=== PATIENT | female | born 1955 | race Caucasian/White ===

== ENCOUNTER → 2017-02-16 | Outpatient (CLI) | payer OTHER ==
[~2017-02-16] MED LIST: CALCTAB5 PO; CRD4 PO; CRG25 PO; DYZ PO; IBUP600T44 PO; LEVO100T84 PO; OMEG10007 PO; OXYC-57 PO; PRAV20TA PO; PRLSR20 PO
[2017-02-16 12:38] LABS: ALT/SGPT 31 U/L (12-78); BLOOD UREA NITROGEN 20 mg/dl (7-18); CALCIUM 9.2 mg/dl (8.5-10.1); CARBON DIOXIDE 26 mmol/L (21-32); CHLORIDE 111 mmol/L (98-107); CHOLESTEROL 147 mg/dl (0-200); CREATININE 0.86 mg/dl (0.60-1.20); GLUCOSE 89 mg/dl (70-99); POTASSIUM 4.1 mmol/L (3.5-5.1); SODIUM 144 mmol/L (136-145); TRIGLYCERIDES 84 mg/dl (0-150); VERY LOW DENSITY LIPOPROT CALC 17 mg/dl
[2017-02-16 12:49] LABS: ALKALINE PHOSPHATASE 125 U/L (45-117); AST/SGOT 22 U/L (15-37); CHOLESTEROL/HDL RATIO 2.4; HDL CHOLESTEROL 61 mg/dl; LDL CHOLESTEROL CALCULATED 69 mg/dl
== END | disposition home or self-care (01) ==
LOC: C.LABPBG 08:45
PROVIDERS: ATTEND Internal Medicine
DX: E03.9 Hypothyroidism, unspecified (principal); E78.5 Hyperlipidemia, unspecified; R42 Dizziness and giddiness

== ENCOUNTER → 2017-06-15 | Outpatient (CLI) | payer OTHER ==
[2017-06-15 17:57] LABS: BASO % 1.1 %; COMPLETE YES; EOS % 2.9 %; IG% 0.5 %; LYMPH % 25.6 %; LYMPH ABS # 2.42 K/uL (1.2-3.4); MEAN CELL VOLUME 93.1 fL (80-100); MEAN CORPUSCULAR HEMOGLOBIN 30.6 pg (25-34); MEAN CORPUSCULAR HGB CONC 32.9 g/dl (32-36); MEAN PLATELET VOLUME 10.8 fL (7.4-10.4); MONO % 7.9 %; PLATELET COUNT 271 K/uL (130-400); RED BLOOD COUNT 4.51 M/uL (4.2-5.4); WHITE BLOOD COUNT 9.46 K/uL (4.8-10.8)
[2017-06-15 18:25] LABS: ALT/SGPT 32 U/L (12-78); AST/SGOT 23 U/L (15-37); BLOOD UREA NITROGEN 16 mg/dl (7-18); BUN/CREATININE RATIO 17.6 (10-20); CALCIUM 9.2 mg/dl (8.5-10.1); CARBON DIOXIDE 28 mmol/L (21-32); CHLORIDE 109 mmol/L (98-107); GLUCOSE 80 mg/dl (70-99); POTASSIUM 3.9 mmol/L (3.5-5.1); SODIUM 143 mmol/L (136-145)
[2017-06-15 18:28] LABS: ALB/GLOB RATIO 1.1 (0.9-2); ALKALINE PHOSPHATASE 132 U/L (45-117)
[2017-06-15 18:46] LABS: LYME DISEASE AB IGM NEG (NEG)
[2017-06-15 18:49] LABS: LYME DISEASE AB IGG NEG (NEG)
== END | disposition home or self-care (01) ==
LOC: C.LAB 17:11
PROVIDERS: ATTEND Physician Assistant
DX: H53.8 Other visual disturbances (principal); R42 Dizziness and giddiness

== ENCOUNTER → 2017-06-17 | Outpatient (CLI) | payer OTHER ==
--- NOTE | 2017-06-17 09:56 | DIAGNOSTIC IMAGING REPORT ---
HEAD WITHOUT CONTRAST (CT) CLINICAL HISTORY: 61 years-old Female with R42 Severe [id number] Blurred vision TECHNIQUE: Multiple axial CT images of the head were obtained without contrast. A dose lowering technique was utilized adhering to the principles of ALARA. CT DOSE: 537.48 mGy.cm COMPARISON: None. FINDINGS: No acute intracranial hemorrhage, midline shift, mass, large territorial ischemia or abnormal extra-axial collection. There is mild cerebral atrophy. Patchy areas of low-attenuation are seen within the subcortical and periventricular white matter of the cerebral hemispheres bilaterally suggesting chronic microvascular ischemic changes. The calvarium is intact. The paranasal sinuses, mastoid air cells, and middle ear cavities are clear. IMPRESSION: 1. No acute intracranial hemorrhage or large area of territorial ischemia. 2. Mild cerebral atrophy with suggested chronic microvascular ischemic changes. The above report was generated using voice recognition software. It may contain grammatical, syntax or spelling errors. Electronically signed by: Pedro Vogel M.D. 06/17/2017 9:55 AM Dictated Date/Time: 06/17/2017 9:49 AM
== END | disposition home or self-care (01) ==
LOC: C.CTS 09:34
PROVIDERS: ATTEND Physician Assistant
DX: H53.8 Other visual disturbances (principal); R42 Dizziness and giddiness; G31.9 Degenerative disease of nervous system, unspecified

== ENCOUNTER → 2017-12-28 | Outpatient (CLI) | payer OTHER ==
--- NOTE | 2017-12-28 15:24 | MAMMOGRAPHY REPORT ---
BILATERAL DIGITAL SCREENING MAMMOGRAM TOMOSYNTHESIS WITH CAD: 12/28/2017 CLINICAL HISTORY: Routine screening. Patient has no complaints. TECHNIQUE: Breast tomosynthesis in addition to standard 2D mammography was performed. Current study was also evaluated with a Computer Aided Detection (CAD) system. COMPARISON: Comparison is made to exams dated: 11/24/2016 mammogram - [facility], 10/09/2015 mammogram, 10/03/2014 mammogram, 09/26/2013 mammogram, and 09/20/2012 mammogram - [facility]. BREAST COMPOSITION: There are scattered areas of fibroglandular density in both breasts. FINDINGS: No suspicious masses, calcifications, or areas of architectural distortion are noted in ei ther breast. There has been no significant interval change compared to prior exams. There is a stabl e benign intramammary lymph node in the left upper outer quadrant. IMPRESSION: ACR BI-RADS CATEGORY 2: BENIGN There is no mammographic evidence of malignancy. A 1 year screening mammogram is recommended. The pa tient will receive written notification of the results. Approximately 10% of breast cancers are not detected with mammography. A negative mammographic report should not delay biopsy if a clinically suggestive mass is present. Tarah Merrill M.D. ah/:12/28/2017 14:44:21 [employer]aster: Stacey MANZO)(Ioana), [facility] letter sent: Normal 1/2 BI-RADS Code: ACR BI-RADS Category 2: Benign
== END | disposition home or self-care (01) ==
LOC: C.MAMM 14:08
PROVIDERS: ATTEND Internal Medicine
DX: Z12.31 Encounter for screening mammogram for malignant neoplasm of breast (principal)

== ENCOUNTER → 2018-03-06 | Outpatient (CLI) | payer OTHER ==
[~2018-03-06] MED LIST changes: +ASPCH81X PO; +ATOR-54 PO; +CARV25TA2 PO; +CYCL0.052 OPB; +DOXY50CA5 PO; +HYDR25TA4 PO; +LEVO88TA3 PO; +LISI20TA3 PO; +MELA1TAB5 PO; +VNTHFA/IN INH; +ZOLP5TAB PO
== END | disposition home or self-care (01) ==
LOC: C.LABSPEC 10:40
PROVIDERS: ATTEND Physician Assistant
DX: R19.7 Diarrhea, unspecified (principal)

== ENCOUNTER → 2018-03-07 | Outpatient (CLI) | payer OTHER ==
[2018-03-07 13:00] LABS: BASO % 0.8 %; BASO ABS # 0.07 K/uL (0-0.2); EOS % 3.4 %; EOS ABS # 0.31 K/uL (0-0.5); HEMATOCRIT 42.1 % (37-47); IG# 0.03 K/uL (0.00-0.02); LYMPH % 28.3 %; LYMPH ABS # 2.56 K/uL (1.2-3.4); MEAN CELL VOLUME 92.3 fL (80-100); MEAN CORPUSCULAR HEMOGLOBIN 30.7 pg (25-34); MEAN CORPUSCULAR HGB CONC 33.3 g/dl (32-36); MEAN PLATELET VOLUME 11.8 fL (7.4-10.4); MONO % 7.2 %; MONO ABS # 0.65 K/uL (0.11-0.59); NEUT ABS # 5.43 K/uL (1.4-6.5); PLATELET COUNT 261 K/uL (130-400); RED CELL DISTRIBUTION WIDTH CV 13.7 % (11.5-14.5); RED CELL DISTRIBUTION WIDTH SD 46.2 fL (36.4-46.3); WHITE BLOOD COUNT 9.05 K/uL (4.8-10.8)
[2018-03-07 13:16] LABS: ALBUMIN 3.5 gm/dl (3.4-5.0); ALT/SGPT 34 U/L (12-78); AST/SGOT 25 U/L (15-37); BLOOD UREA NITROGEN 17 mg/dl (7-18); CALCIUM 9.1 mg/dl (8.5-10.1); CARBON DIOXIDE 25 mmol/L (21-32); CHOLESTEROL 141 mg/dl (0-200); GLUCOSE 84 mg/dl (70-99); POTASSIUM 3.4 mmol/L (3.5-5.1); SODIUM 139 mmol/L (136-145)
[2018-03-07 13:27] LABS: ALKALINE PHOSPHATASE 139 U/L (45-117); LDL CHOLESTEROL CALCULATED 68 mg/dl; TOTAL PROTEIN 7.2 gm/dl (6.4-8.2)
== END | disposition home or self-care (01) ==
LOC: C.LABPBG 08:03
PROVIDERS: ATTEND Physician Assistant
DX: Z00.00 Encounter for general adult medical examination without abnormal findings (principal); R19.7 Diarrhea, unspecified

== ENCOUNTER → 2018-04-17 | Day surgery (SDC) | payer OTHER ==
[2018-03-14 14:51] VITALS: Ht 157.5 cm; Wt 84.1 kg
[~2018-04-17] VITALS: Ht 157.5 cm; Wt 84.1 kg
[~2018-04-17] MED LIST changes: -CALCTAB5 PO; -CRD4 PO; -CRG25 PO; -DYZ PO; -IBUP600T44 PO; -LEVO100T84 PO; +LIDOCAINE HCL 2% 2 ML VIAL (20MG/ML) ONE; +MIDAZOLAM HCL 1 MG/ML 2ML VIAL ONE; -OMEG10007 PO; +ONDANSETRON INJ 2 MG/ML 2 ML VIAL ONE; -OXYC-57 PO; -PRAV20TA PO; +PROPOFOL IV EMULSION 10 MG/ML 20 ML VIAL ONE; +SODIUM CHLORIDE 0.9% 500ML 500 ML IV ONE
--- NOTE | 2018-04-17 11:37 | Endo History and Physical ---
History & Physical Date of Service: April 17, 2018. Chief Complaint: diarrhea Referring Physician: Dr. Mike Russ History of Present Illness 62 yo CF who presents for colonoscopy secondary to diarrhea. Past Surgical History Hx Cardiac Surgery: No Hx Internal Defibrillator: No Hx Pacemaker: No Hx Abdominal Surgery: Yes (TUBAL LIGATION, HYSTERECTOMY) Hx of Implantable Prosthesis: No Hx Post-Op Nausea and Vomiting: No Hx Cancer Surgery: No Hx Thoracic Surgery: No Hx Orthopedic: No Hx Urinary Tract Surgery: No Family History Colon CA, IBD Social History Smoking Status: Never Smoker Hx Substance Use: No Hx Alcohol Use: No Allergies Coded Allergies: No Known Allergies (Verified , NONE, 04/17/18) Current Medications Reported Home Medications Medications Dose Route/Sig Max Daily Dose Days Date Category Doxycycline Monohydrate (Doxycycline (Monohydrate)) 50 Mg Cap 1 Cap PO DIRECTED PRN 03/14/18 Reported Ambien (Zolpidem Tartrate) 5 Mg Tab 5 Mg PO HS 03/14/18 Reported Ventolin Hfa (Albuterol) 200 Puffs/72246 Mcg Aers 2-4 Puffs INH Q6H PRN 03/14/18 Reported Restasis (Cyclosporine (Ophth)) 0.05 % Emu 1 Drop OPB BID 03/14/18 Reported Prilosec (Omeprazole) 20 Mg Capcr 20 Mg PO QAM 03/14/18 Reported Kp Melatonin (Melatonin) 3 Mg Tab 1 Tab PO HS PRN 03/14/18 Reported Prinivil (Lisinopril) 20 Mg Tab 20 Mg PO QAM 03/14/18 Reported Levothyroxine Sodium 88 Mcg Tab 1 Tab PO QAM 03/14/18 Reported Hctz (Hydrochlorothiazide) 25 Mg Tab 25 Mg PO 3XWK 03/14/18 Reported Coreg (Carvedilol) 25 Mg Tab 0.5 Tab PO BID 03/14/18 Reported Lipitor (Atorvastatin) 20 Mg Tab 20 Mg PO QPM 03/14/18 Reported Aspirin Chewable (Aspirin) 81 Mg Chew 81 Mg PO QPM 03/14/18 Reported Vital Signs Weight (Kilograms): 84.09 Height (Feet): 5 Height (Inches): 2 Date Time Temp Pulse Resp B/P (MAP) Pulse Ox O2 Delivery O2 Flow Rate FiO2 04/17/18 11:21 36.4 66 20 135/60 (85) 95 Room Air Physical Exam General Appearance: WD/WN, no apparent distress Respiratory/Chest: Auscultation: breath sounds normal Cardiovascular: Heart Auscultation: RRR Abdomen: Bowel Sounds: normal Inspection & Palpation: soft, non-distended, no tenderness, guarding & rebound Assessment and Plan Assessment: 62 yo CF who presents for colonoscopy secondary to diarrhea. Plan: Proceed with colonoscopy.
--- NOTE | 2018-04-17 12:51 | Discharge Instructions ---
Endoscopy Patient Instructions Date / Procedure(s) Performed April 17, 2018. Colonoscopy Allergy Information Coded Allergies: No Known Allergies (Verified , NONE, 04/17/18) Discharge Date / Findings April 17, 2018. Colon polyps Diverticulosis Internal hemorrhoids Random colon biopsies Stool studies collected Medication Instructions Stopped Medication(s): stopped ASA week ago OK to resume all medications today as prescribed Reported Home Medications Medications Dose Route/Sig Max Daily Dose Days Date Category Doxycycline Monohydrate (Doxycycline (Monohydrate)) 50 Mg Cap 1 Cap PO DIRECTED PRN 03/14/18 Reported Ambien (Zolpidem Tartrate) 5 Mg Tab 5 Mg PO HS 03/14/18 Reported Ventolin Hfa (Albuterol) 200 Puffs/76167 Mcg Aers 2-4 Puffs INH Q6H PRN 03/14/18 Reported Restasis (Cyclosporine (Ophth)) 0.05 % Emu 1 Drop OPB BID 03/14/18 Reported Prilosec (Omeprazole) 20 Mg Capcr 20 Mg PO QAM 03/14/18 Reported Kp Melatonin (Melatonin) 3 Mg Tab 1 Tab PO HS PRN 03/14/18 Reported Prinivil (Lisinopril) 20 Mg Tab 20 Mg PO QAM 03/14/18 Reported Levothyroxine Sodium 88 Mcg Tab 1 Tab PO QAM 03/14/18 Reported Hctz (Hydrochlorothiazide) 25 Mg Tab 25 Mg PO 3XWK 03/14/18 Reported Coreg (Carvedilol) 25 Mg Tab 0.5 Tab PO BID 03/14/18 Reported Lipitor (Atorvastatin) 20 Mg Tab 20 Mg PO QPM 03/14/18 Reported Aspirin Chewable (Aspirin) 81 Mg Chew 81 Mg PO QPM 03/14/18 Reported Provider Instructions Activity Restrictions - No exercising or heavy lifting for 24 hours. - Do not drink alcohol the day of the procedure. - Do not drive a car or operate machinery until the day after the procedure. - Do not make any important decisions or sign important papers in 24 hours after the procedure. Following Day: - Return to full activity which may include returning to work/school. Diet Start your diet with liquids and light foods (jello, soup, juice, toast). Then eat your usual diet if not nauseated. Treatment For Common After Affects For mild abdominal pain, bloating, or excessive gas: - Rest - Eat lightly - Lie on right side Follow-Up Information Follow-up with Dr. Mike Russ as scheduled Anesthesia Information What You Should Know You have had a procedure that required some medicine to reduce anxiety and discomfort. This treatment is called moderate sedation. After receiving the treatment, you may be sleepy, but you will be able to breathe on your own. The effects of the treatment may last for several hours. Follow these instructions along with Activity/Diet recommendations noted above: * Do NOT do anything where dizziness or clumsiness would be dangerous. * Rest quietly at home today, then you can be up and about tomorrow. * Have a responsible person stay with you the rest of today. * You may have had an I.V. today. If so, you may take the dressing off later today. Recommendations Call your doctor if: * Trouble breathing * Continuous vomiting for more than 24 hours * Temperature above 101 degrees * Severe abdominal pain or bloating * Pain not relieved by pain medicine ordered * There is increased drainage or redness from any incision * A large amount of rectal bleeding greater than 2-3 tablespoons. (If you had a polyp/s removed or have hemorrhoids, a small amount of blood - from the rectum is to be expected.) * You have any unanswered questions or concerns. IN THE EVENT OF A SERIOUS EMERGENCY, GO TO THE NEAREST EMERGENCY ROOM Your discharge instructions were prepared by provider Facundo Clements. Patient Instructions Signature Page Lupe Woody Patient (or Guardian) Signature/Date: I have read and understand the instructions given to me by my caregivers. Caregiver/RN/Doctor Signature/Date: The above-named patient and/or guardian has received patient instructions on this date. + Original Patient Signature Page (only) stays with chart. Please make copy for patient.
--- NOTE | 2018-04-17 13:04 | GI REPORT ---
Patient Name: Lupe Woody Procedure Date: 04/17/2018 12:18 PM Date of : 1955 Admit Type: Outpatient Age: 62 Gender: Female Attending MD: Facundo Clements DO Procedure: Colonoscopy Providers: Facundo Clements DO Referring MD: Mike Russ Indications: Chronic diarrhea Medicines: Monitored Anesthesia Care Complications: No immediate complications. Estimated Blood Loss: Estimated blood loss: none. Procedure: Pre-Anesthesia Assessment: - Prior to the procedure, a History and Physical was performed, and patient medications and allergies were reviewed. The patient's tolerance of previous anesthesia was also reviewed. The risks and benefits of the procedure and the sedation options and risks were discussed with the patient. All questions were answered, and informed consent was obtained. Prior Anticoagulants: The patient has taken aspirin, last dose was 7 days prior to procedure. ASA Grade Assessment: II - A patient with mild systemic disease. After reviewing the risks and benefits, the patient was deemed in satisfactory condition to undergo the procedure. After I obtained informed consent, the scope was passed under direct vision. Throughout the procedure, the patient's blood pressure, pulse, and oxygen saturations were monitored continuously. The scope was introduced through the anus and advanced to the terminal ileum. The colonoscopy was performed without difficulty. The patient tolerated the procedure well. The quality of the bowel preparation was good. The terminal ileum, ileocecal valve, appendiceal orifice, and rectum were photographed. Findings: The perianal and digital rectal examinations were normal. A 10 mm polyp was found in the cecum. The polyp was flat. The polyp was removed with a hot snare. Resection and retrieval were complete. To prevent bleeding after the polypectomy, two hemostatic clips were successfully placed (MR conditional). There was no bleeding at the end of the procedure. A 3 mm polyp was found in the transverse colon. The polyp was sessile. The polyp was removed with a cold biopsy forceps. Resection and retrieval were complete. Fluid aspiration for Stool studies was performed in the entire colon. Several random biopsies were obtained with cold forceps for histology in the entire colon. Multiple small-mouthed diverticula were found in the sigmoid colon. Non-bleeding internal hemorrhoids were found during retroflexion. The hemorrhoids were small. Impression: - One 10 mm polyp in the cecum, removed with a hot snare. Resected and retrieved. Clips (MR conditional) were placed. - One 3 mm polyp in the transverse colon, removed with a cold biopsy forceps. Resected and retrieved. - Diverticulosis in the sigmoid colon. - Non-bleeding internal hemorrhoids. - Fluid aspiration was performed. - Several random biopsies were obtained in the entire colon. Recommendation: - Resume previous diet. - Continue present medications. - Repeat colonoscopy for surveillance based on pathology results. - Return to primary care physician as previously scheduled. Facundo Clements, DO 04/17/2018 1:03:46 PM This report has been signed electronically. Note Initiated On: 04/17/2018 12:18 PM Number of Addenda: 0 I attest to the content of the Intraoperative Record and orders documented therein, exceptions below {[id number]}
--- NOTE | 2018-04-17 13:19 | Anesthesiology Progress Note ---
Anesthesia Post Op Note Date & Time April 17, 2018 at 13:19 Vital Signs Pain Intensity: 0 Vital Signs Past 12 Hours Date Time Temp Pulse Resp B/P (MAP) Pulse Ox O2 Delivery O2 Flow Rate FiO2 04/17/18 13:06 71 16 105/77 (86) 95 Room Air 04/17/18 12:49 65 16 102/57 (72) 94 Room Air 04/17/18 11:21 36.4 66 20 135/60 (85) 95 Room Air Notes Mental Status: alert / awake / arousable, participated in evaluation Pt Amnestic to Procedure: Yes Nausea / Vomiting: adequately controlled Pain: adequately controlled Airway Patency, RR, SpO2: stable & adequate BP & HR: stable & adequate Hydration State: stable & adequate Anesthetic Complications: no major complications apparent
[2018-04-17 13:20] VITALS: BP 131/72; PULSE 59; O2SAT 96
== END | disposition home or self-care (01) ==
LOC: C.GI 10:47
PROVIDERS: ATTEND Internal Medicine
DX: R19.7 Diarrhea, unspecified (principal); D12.0 Benign neoplasm of cecum; D12.3 Benign neoplasm of transverse colon; K57.30 Diverticulosis of large intestine without perforation or abscess without bleeding; K64.8 Other hemorrhoids; J45.909 Unspecified asthma, uncomplicated; I10 Essential (primary) hypertension; E78.5 Hyperlipidemia, unspecified; K21.9 Gastro-esophageal reflux disease without esophagitis; M19.90 Unspecified osteoarthritis, unspecified site; E03.9 Hypothyroidism, unspecified; Z90.710 Acquired absence of both cervix and uterus; Z80.0 Family history of malignant neoplasm of digestive organs; Z79.82 Long term (current) use of aspirin